=== PATIENT | female | born 1995 | race Hispanic/Latino ===

== ENCOUNTER 2024-12-07 07:09 | Inpatient (IN) | payer BC ==
[2025-01-01] MEDS ORDERED: HYDROcodone/Acetaminophen 5/325 mg Tablet PO PRN ×4 (07:15→20:13)
[2025-01-01] MEDS ORDERED: Ondansetron PF 4 MG/2 ML Vial IVP PRN ×3 (07:15→20:13)
[2025-01-01] MEDS ORDERED: Lidocaine 1% (PF) 30 ML VIAL SC PRN (07:15)
[2025-01-01] MEDS ORDERED: Ibuprofen 800 MG TAB PO PRN (07:15)
[2025-01-01] MEDS ORDERED: Oxytocin 30 units/NS 500 ML 500 ML IV SCH (07:15)
[2025-01-01] MEDS ORDERED: hydrALAZINE 20 MG/ML VIAL SLOW IVP PRN ×2 (07:15→20:13)
[2025-01-01 07:22] VITALS: BMI 25.7
[2025-01-01 07:52] LABS: Hematocrit 41.2 % (34.9-44.5); Hemoglobin 14.2 g/dL (12.0-15.5); Mean Corpuscular Hemoglobin 30.6 pg (27.0-33.0); Mean Corpuscular Volume 88.8 fL (81.6-98.3); Platelet Count 208 10x3/uL (150-450); Red Blood Cell (RBC) Count 4.64 10x6/uL (3.90-5.03); White Blood Cell (WBC) Count 9.48 10x3/uL (3.5-10.5)
[2025-01-01 08:26] LABS: Hep B Surf Ag - L&D Non-Reactive S/CO (NonReactive)
[2025-01-01 08:28] LABS: Syphilis Antibody Index 0.09 S/CO (<1.00 Non-Reactive)
[2025-01-01] MEDS: fentaNYL/Ropivacaine Epidural 100 ML ONE (14:04)
[2025-01-01] MEDS ORDERED: Acetaminophen 325 MG TAB PO PRN (14:07)
[2025-01-01] MEDS ORDERED: diphenhydrAMINE 50 MG/ML VIAL IVP PRN (14:07)
[2025-01-01] MEDS ORDERED: fentaNYL 2 mcg/Ropivacaine 0.2% Epidural 100 ML CADD EPIDURAL SCH (14:15)
[2025-01-01] MEDS ORDERED: Communication Order-Pharmacy FS SCH (14:15)
[2025-01-01] MEDS: Oxytocin 30 units/NS 500 ML 500 ML IV SCH (15:22)
[2025-01-01] MEDS ORDERED: diphenhydrAMINE 25 MG CAP PO PRN (20:13)
[2025-01-01] MEDS ORDERED: Milk Of Magnesia 30 ML UDCUP PO PRN (20:13)
[2025-01-01] MEDS ORDERED: Boostrix 0.5 ML (Tdap) VIAL (>/=7 yrs of age) IM ONE (20:13)
[2025-01-01] MEDS ORDERED: Bisacodyl 10 MG SUPP PR PRN (20:13)
[2025-01-01] MEDS ORDERED: Preparation H Ointment 28 GM TUBE PR PRN (20:13)
[2025-01-01] MEDS ORDERED: Lanolin Ointment 7 GM TUBE TOP PRN (20:13)
[2025-01-01] MEDS: Ibuprofen 800 MG TAB PO SCH (21:35)
[2025-01-01] MEDS: Hepatitis B Vaccine 10 MCG/0.5 ML SYR ONE (21:44)
[2025-01-01] MEDS: Erythromycin Base 0.5% Oint 1 GM TUBE ONE (21:44)
[2025-01-02] MEDS: Ferrous Sulfate 325 MG TAB PO SCH (07:31)
[2025-01-02] MEDS: Benzocaine-Menthol 82.5 ML CAN TOP PRN (08:08)
[2025-01-03 07:55] VITALS: BP 107/56; TEMP 97.9
== END 2025-01-03 12:43 | disposition home or self-care (01) | DRG 807 ==
LOC: CSHLD 01-01 07:11 → CSHPP 01-01 20:25
PROVIDERS: ADMIT Obstetrics & Gynecology; ATTEND Obstetrics & Gynecology
PROC: 10907ZC Drainage of Amniotic Fluid, Therapeutic from Products of Conception, Via Natural or Artificial Opening (ICD-10-PCS; principal; 2025-01-01)
PROC: 10E0XZZ Delivery of Products of Conception, External Approach (ICD-10-PCS; 2025-01-01)
PROC: 0HQ9XZZ Repair Perineum Skin, External Approach (ICD-10-PCS; 2025-01-01)
PROC: 0UQMXZZ Repair Vulva, External Approach (ICD-10-PCS; 2025-01-01)
DX: O48.0 Post-term pregnancy (principal); Z37.0 Single live birth; Z3A.41 41 weeks gestation of pregnancy; O70.0 First degree perineal laceration during delivery; O71.82 Other specified trauma to perineum and vulva
CPT/HCPCS: 36415; 51702; 85027; 86780; 86850; 86900; 86901; 87340; 99285; J2590